=== PATIENT | female | born 1980 | race Caucasian/White ===

== ENCOUNTER 2021-10-14 13:11 | Emergency (ER) | payer OTHER ==
[~2021-10-14] VITALS: Ht 157.5 cm; Wt 62.1 kg
[2021-10-14] MEDS ORDERED: MEDROL 4MG DOSEP4 MG PO (15:55)
== END 2021-10-14 16:05 | disposition home or self-care (01) ==
LOC: FER 13:11
DX: M72.2 Plantar fascial fibromatosis (principal); Z88.6 Allergy status to analgesic agent; Z88.0 Allergy status to penicillin; Z88.1 Allergy status to other antibiotic agents; Z91.041 Radiographic dye allergy status
CPT/HCPCS: 73630